=== PATIENT | female | born 1965 | race Caucasian/White ===

== ENCOUNTER → 2017-07-29 | Outpatient (CLI) | payer BC ==
[2017-07-29 13:35] LABS: EOS # 0.5 (0.04-0.40); EOS % 7.9 % (1.0-5.0); HEMATOCRIT 43.4 % (37.0-47.0); HEMOGLOBIN 14.3 g/dL (12.5-16.0); LYMPH# 2.1 (1.50-4.00); MEAN CELL VOLUME 88 fl (78-100); MEAN CORPUSCULAR HEMOGLOBIN 29 pg (27-31); MEAN CORPUSCULAR HGB CONC 33 g/dL (33-37); MEAN PLATELET VOLUME 12.2 fl (7.4-10.4); MONO # 0.6 (0.20-0.80); NEU # 3.3 (1.40-6.50); PLATELET COUNT 116 K/mm3 (130-400); RED BLOOD COUNT 4.93 M/mm3 (4.10-5.30); RED CELL DISTRIBUTION WIDTH 12.4 % (11.5-14.5); WHITE BLOOD COUNT 6.6 K/mm3 (4.8-10.8)
[2017-07-29 13:40] LABS: ALBUMIN 4.4 g/dL (3.5-5.0); BUN/CREATININE RATIO 23.5 (6.0-26.0); CALCIUM 9.6 mg/dL (8.4-10.2); TOTAL BILIRUBIN 0.3 mg/dL (0.2-1.3); TOTAL PROTEIN 8.3 g/dL (6.3-8.2)
== END ==
LOC: LAB 10:05
PROVIDERS: Nurse Practitioner Family
DX: Z00.00 Encounter for general adult medical examination without abnormal findings (principal)

== ENCOUNTER → 2017-08-08 | Outpatient (CLI) | payer BC ==
[2017-08-09 02:43] LABS: T3 TOTAL 107 ng/dL (87-178)
== END ==
LOC: LAB 08:59
PROVIDERS: Nurse Practitioner Family
DX: L60.3 Nail dystrophy (principal); R53.81 Other malaise

== ENCOUNTER → 2017-08-09 | Outpatient (CLI) | payer BC | LOC: MAMMO 07:22 | DX: Z12.31 Encounter for screening mammogram for malignant neoplasm of breast (principal); R74.8 Abnormal levels of other serum enzymes ==

== ENCOUNTER → 2017-09-30 | Outpatient (CLI) | payer BC | LOC: LAB 11:51 | DX: R31.9 Hematuria, unspecified (principal) ==

== ENCOUNTER → 2019-01-29 | Outpatient (CLI) | payer BC ==
[2019-01-29 15:18] LABS: EOS # 0.4 (0.04-0.40); EOS % 5.4 % (1.0-5.0); HEMATOCRIT 41.5 % (37.0-47.0); HEMOGLOBIN 13.7 g/dL (12.5-16.0); LYMPH# 2.2 (1.50-4.00); MEAN CELL VOLUME 87 fl (78-100); MEAN CORPUSCULAR HEMOGLOBIN 29 pg (27-31); MEAN CORPUSCULAR HGB CONC 33 g/dL (33-37); MEAN PLATELET VOLUME 11.4 fl (7.4-10.4); MONO # 0.6 (0.20-0.80); NEU # 3.7 (1.40-6.50); PLATELET COUNT 101 K/mm3 (130-400); RED BLOOD COUNT 4.79 M/mm3 (4.10-5.30); RED CELL DISTRIBUTION WIDTH 12.3 % (11.5-14.5); WHITE BLOOD COUNT 6.9 K/mm3 (4.8-10.8)
[2019-01-29 15:26] LABS: ALBUMIN 4.2 g/dL (3.5-5.0); POTASSIUM 3.9 mmol/L (3.5-5.1)
[2019-01-29 15:27] LABS: CALCIUM 9.8 mg/dL (8.3-10.5)
[2019-01-29 15:29] LABS: TOTAL PROTEIN 7.7 g/dL (6.4-8.3)
[2019-01-29 15:31] LABS: TOTAL BILIRUBIN 0.3 mg/dL (0.2-1.2)
== END ==
LOC: LAB 15:02
PROVIDERS: Family Medicine
DX: Z00.00 Encounter for general adult medical examination without abnormal findings (principal); E78.5 Hyperlipidemia, unspecified

== ENCOUNTER → 2019-03-12 | Outpatient (CLI) | payer BC ==
[2019-03-12 23:16] LABS: FOLLICLE STIMULATING HORMONE 18.5 mIU/mL (()); LUTENIZING HORMONE 5.6 mIU/mL (()); PROGESTERONE 0.1 ng/mL (())
== END ==
LOC: LAB 10:32
PROVIDERS: Family Medicine
DX: N93.9 Abnormal uterine and vaginal bleeding, unspecified (principal)

== ENCOUNTER → 2020-08-19 | Outpatient (CLI) | payer BC | LOC: MAMMO 08-12 13:45 | DX: Z12.31 Encounter for screening mammogram for malignant neoplasm of breast (principal) ==

== ENCOUNTER → 2020-11-05 | Outpatient (CLI) | payer BC | LOC: LAB 12:09 | DX: R10.9 Unspecified abdominal pain (principal) ==